=== PATIENT | female | born 1985 | race Caucasian/White ===

== ENCOUNTER 2019-08-30 09:01 | Emergency (ER) | payer OTHER ==
--- NOTE | 2019-08-30 10:42 | Emergency Department Report ---
ED Palpitations HPI - General Chief Complaint: Arrhythmia/Palpitations Stated Complaint: HEART RATE FAST Time Seen by Provider: 08/30/19 10:32 Source: patient Mode of arrival: Ambulatory Limitations: No Limitations - History of Present Illness Initial Comments: Patient is 33 years old female with no significant past medical history except for hypothyroidism for which she is taking Synthroid. Patient presented to the ER complaining of palpitation since last night. Patient stated that episode continued for a few minutes and they will go away. She stated that she will have some shortness of breath and she will feel dizzy with that. Patient also c omplaining of chest pain during this episode. Patient denying any loss of consciousness, focal weakness numbness or tingling sensation. MD Complaint: rapid heart beat, palpitations -: Last night Context: occured during exertion Associated Symptoms: shortness of breath - Related Data Allergies Allergy/AdvReac Type Severity Reaction Status Date / Time No Known Allergies Allergy Unverified 08/30/19 09:12 ED Review of Systems ROS: Stated complaint: HEART RATE FAST Other details as noted in HPI Comment: All other systems reviewed and negative Constitutional: denies: chills, fever Respiratory: shortness of breath. denies: cough, SOB with exertion, SOB at rest, wheezing Cardiovascular: chest pain, palpitations Gastrointestinal: denies: abdominal pain, nausea, vomiting Neurological: denies: headache, weakness, numbness, paresthesias, confusion ED Past Medical Hx - Past Medical History Previous Medical History?: Yes Additional medical history: Hashimotos ED Physical Exam - General Limitations: No Limitations General appearance: alert, in no apparent distress, anxious - Head Head exam: Present: atraumatic, normocephalic, normal inspection - Eye Eye exam: Present: normal appearance - ENT ENT exam: Present: normal exam, normal orophraynx, mucous membranes moist - Neck Neck exam: Present: normal inspection, full ROM. Absent: tenderness, meningismus, lymphadenopathy, thyromegaly - Respiratory Respiratory exam: Present: normal lung sounds bilaterally - Cardiovascular Cardiovascular Exam: Present: tachycardia - GI/Abdominal GI/Abdominal exam: Present: soft, normal bowel sounds. Absent: distended, tenderness, guarding, rebound, rigid, organomegaly, mass, bruit, pulsatile mass, hernia - Extremities Exam Extremities exam: Present: normal inspection, full ROM, normal capillary refill. Absent: tenderness, pedal edema, joint swelling, calf tenderness - Back Exam Back exam: Present: normal inspection, full ROM. Absent: CVA tenderness (R), CVA tenderness (L), muscle spasm, paraspinal tenderness, vertebral tenderness - Neurological Exam Neurological exam: Present: alert, oriented X3, CN II-XII intact, normal gait, reflexes normal. Absent: motor sensory deficit - Psychiatric Psychiatric exam: Present: normal mood, anxious - Skin Skin exam: Present: warm, intact, normal color ED Course Vital Signs 08/30/19 08/30/19 08/30/19 09:30 11:59 12:00 Temperature 98.8 F Pulse Rate 107 H 85 85 Respiratory 20 16 15 Rate Blood Pressure 118/78 Blood Pressure 146/85 [Right] O2 Sat by Pulse 100 100 100 Oximetry ED Medical Decision Making - Lab Data Result diagrams: 08/30/19 11:06 08/30/19 11:06 - EKG Data -: EKG Interpreted by In EKG shows normal: sinus rhythm Rate: tachycardia - EKG Data Interpretation: no acute changes - Radiology Data Radiology results: report reviewed - Medical Decision Making Patient is 33 years old female with no significant past medical history except for hypothyroidism for which she is taking Synthroid. Patient presented to the ER complaining of palpitation since last night. Patient stated that episode continued for a few minutes and they will go away. She stated that she will have some shortness of breath and she will feel dizzy with that. Patient also complaining of chest pain during this episode. Patient denying any loss of consciousness, focal weakness numbness or tingling sensation. Patient remained stable in the ER. EKG showed a sinus tachycardia with a heart rate of 100. Chest x-ray is unremarkable. Labs reviewed and is unremarkable including a negative troponin, d-dimer and thyroid panel. 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 Patient also advised to return to the ER if she develops any new symptoms or her symptoms get worse. Critical care attestation.: If time is entered above; I have spent that time in minutes in the direct care of this critically ill patient, excluding procedure time. ED Disposition Clinical Impression: Palpitations Disposition: - TO HOME OR SELFCARE Is pt being admited?: No Condition: Stable Instructions: Palpitations (ED) Referrals: [facility] [Provider Group] - 3-5 Days [facility] [Provider Group] - 3-5 Days
[2019-08-30 11:00] LABS: Amphetamine Screen,Urine PRESUMPTIVE NEGATIVE; Benzodiazepines Screen,Urine PRESUMPTIVE NEGATIVE; Cannabinoid Screen,Urine PRESUMPTIVE NEGATIVE; Cocaine Screen,Urine PRESUMPTIVE NEGATIVE; Methadone Screen,Urine PRESUMPTIVE NEGATIVE; Opiate Screen,Urine PRESUMPTIVE NEGATIVE
[2019-08-30 11:01] LABS: Bacteria,Urine 1+ /HPF (Negative); Bilirubin,Urine NEG (Negative); Blood,Urine NEG (Negative); Color,Urine Straw (Yellow); Mucus,Urine FEW /HPF; Protein,Urine <15 mg/dL mg/dL (Negative); Urobilinogen,Urine < 2.0 mg/dL (<2.0)
[2019-08-30 11:03] LABS: WBC,Urine < 1.0 /HPF (0.0-6.0)
[2019-08-30 11:18] LABS: Basophils % (Auto) 0.7 % (0.0-1.8); Eosinophils # (Auto) 0.2 K/mm3 (0.0-0.4); Eosinophils % (Auto) 2.9 % (0.0-4.3); Hemoglobin 13.8 gm/dl (10.1-14.3); Lymphocytes # (Auto) 0.8 K/mm3 (1.2-5.4); Lymphocytes % (Auto) 15.7 % (13.4-35.0); Mean Corpuscular HGB Conc 34 % (30-34); Mean Corpuscular Volume 93 fl (79-97); Monocytes # (Auto) 0.3 K/mm3 (0.0-0.8); Monocytes % (Auto) 5.3 % (0.0-7.3); Platelet Count 267 K/mm3 (140-440); Red Blood Count 4.29 M/mm3 (3.65-5.03); Red Cell Distribution Width 12.8 % (13.2-15.2)
[2019-08-30 11:29] LABS: INR 0.98 (0.87-1.13)
[2019-08-30 11:30] LABS: Partial Thromboplastin Time 29.8 Sec. (24.2-36.6)
[2019-08-30 11:42] LABS: BUN/Creatinine Ratio 18; Blood Urea Nitrogen 9 mg/dL (7-17); Calcium 9.9 mg/dL (8.4-10.2); Hemolysis Index 13
--- NOTE | 2019-08-30 11:44 | XRay Report ---
CHEST 1 VIEW INDICATION: Dysrhythmia. COMPARISON: None FINDINGS: Support devices: None. Heart: Within normal limits. Lungs/Pleura: No acute air space or interstitial disease. Additional findings: None. IMPRESSION: Normal AP chest. Signer Name: Chevy Stevens Jr, MD Signed: 08/30/2019 11:40 AM Workstation Name: [id number]
[2019-08-30 11:51] LABS: Free T4 (Free Thyroxine) 1.28 ng/dL (0.76-1.46)
[2019-08-30 12:02] VITALS: BP 118/78
== END 2019-08-30 12:38 | disposition home or self-care (01) ==
LOC: ED 09:01
DX: R00.2 Palpitations (principal)
CPT/HCPCS: 36415; 71045; 80048; 80307; 81001; 82962; 83735; 84439; 84443; 84484; 85025; 85379; 85610; 85730; 93005; 93010

== ENCOUNTER 2020-05-19 19:15 | Emergency (ER) | payer OTHER, MEDICAID ==
[2020-05-19 19:31] VITALS: BP 145/88
[2020-05-19 20:22] LABS: Basophils # (Auto) 0.1 K/mm3 (0.0-0.1); Basophils % (Auto) 0.8 % (0.0-1.8); Eosinophils # (Auto) 0.3 K/mm3 (0.0-0.4); Eosinophils % (Auto) 4.2 % (0.0-4.3); Hematocrit 37.9 % (30.3-42.9); Lymphocytes # (Auto) 1.4 K/mm3 (1.2-5.4); Lymphocytes % (Auto) 16.7 % (13.4-35.0); Mean Corpuscular HGB Conc 34 % (30-34); Mean Corpuscular Volume 95 fl (79-97); Monocytes # (Auto) 0.4 K/mm3 (0.0-0.8); Monocytes % (Auto) 5.5 % (0.0-7.3); Platelet Count 286 K/mm3 (140-440); Red Blood Count 3.97 M/mm3 (3.65-5.03)
[2020-05-19 20:47] LABS: Alanine Aminotransferase 11 units/L (7-56); Albumin 4.4 g/dL (3.9-5); BUN/Creatinine Ratio 20; Blood Urea Nitrogen 12 mg/dL (7-17); Calcium 9.9 mg/dL (8.4-10.2); Hemolysis Index 3
[2020-05-19 20:49] LABS: Bilirubin,Urine NEG (Negative); Blood,Urine LG (Negative); Color,Urine Yellow (Yellow); Mucus,Urine FEW /HPF; Protein,Urine <15 mg/dL mg/dL (Negative); Urobilinogen,Urine < 2.0 mg/dL (<2.0)
[2020-05-19] MEDS ORDERED: ALUM-MAG HYDROXIDE-SIMETHICONE 200-200-20MG/5ML ORAL LIQD 30 ML PO ONE (21:07)
[2020-05-19] MEDS ORDERED: LIDOCAINE VISCOUS 2% 15 ML ORAL LIQD PO ONE (21:07)
[2020-05-19] MEDS ORDERED: ONDANSETRON 4 MG ODT TAB PO ONE (21:07)
[2020-05-19] MEDS ORDERED: FAMOTIDINE 20 MG TAB PO ONE (21:07)
--- NOTE | 2020-05-19 23:44 | Ultrasound Report ---
US abdomen limited INDICATION / CLINICAL INFORMATION: RUQ and Epigastric pain. COMPARISON: None available. FINDINGS: Gallbladder appears normal, with no stones. Common duct is normal in size. Liver, pancreas and abdominal aorta also appear negative. IMPRESSION: 1. Negative study. Signer Name: Jean-Paul Partida MD Signed: 05/19/2020 11:40 PM Workstation Name: [id number]
--- NOTE | 2020-05-19 23:53 | Emergency Department Report ---
ED Abdominal Pain HPI - General Chief Complaint: Abdominal Pain Stated Complaint: ABDOMINAL PAIN,NAUSEA FOR 2WEEKS Source: patient Mode of arrival: Ambulatory Limitations: No Limitations - History of Present Illness Initial Comments: Patient is a 34-year-old female with a history of hypothyroidism who presents to the ED with acute onset persistent epigastric pain with nausea and vomiting intermittently for the last 2.5 weeks. Patient states that the pain gets worse she eats and food. Patient states that she does not eat much because of persistent nausea and vomiting with worsening epigastric pain. Patient states that the pain has worsened especially in the last 2 days. Patient denies dizziness, syncope, chest pain, shortness of breath, fever, chills, diarrhea, dysuria, urinary frequency and urgency, hematemesis, hemoptysis, cough, sore throat, headache, change in vision or back pain. MD Complaint: abdominal pain (epigastric pain, nausea) -: Gradual, week(s) (2) Location: epigastric Radiation: none Migration to: no migration Severity: moderate Severity scale (0 -10): 5 Quality: cramping, aching Consistency: intermittent Improves With: nothing Worsens With: eating Associated Symptoms: denies other symptoms, nausea, vomiting. denies: diarrhea, fever, chills, constipation, dysuria, hematemesis, hematochezia, melena, hematuria, other - Related Data Previous Rx's Medication Instructions Recorded Last Taken Type Dicyclomine [Bentyl] 20 mg PO Q6H PRN #24 tablet 05/19/20 Unknown Rx Famotidine [Pepcid] 20 mg PO BID #60 tablet 05/19/20 Unknown Rx Omeprazole 40 mg PO DAILY #60 capsule.dr 05/19/20 Unknown Rx Ondansetron [Zofran Odt] 4 mg PO Q6HR PRN #20 tab.rapdis 05/19/20 Unknown Rx Allergies Allergy/AdvReac Type Severity Reaction Status Date / Time No Known Allergies Allergy Unverified 08/30/19 09:12 ED Review of Systems ROS: Stated complaint: ABDOMINAL PAIN,NAUSEA FOR 2WEEKS Other details as noted in HPI Constitutional: denies: chills, fever Eyes: denies: eye pain, eye discharge, vision change ENT: denies: ear pain, throat pain Respiratory: denies: cough, shortness of breath, wheezing Cardiovascular: denies: chest pain, palpitations Endocrine: no symptoms reported Gastrointestinal: abdominal pain (epigastric pain), nausea, vomiting. denies: diarrhea Genitourinary: denies: urgency, dysuria, discharge Musculoskeletal: denies: back pain, joint swelling, arthralgia Skin: denies: rash, lesions Neurological: denies: headache, weakness, paresthesias Psychiatric: denies: anxiety, depression Hematological/Lymphatic: denies: easy bleeding, easy bruising ED Past Medical Hx - Past Medical History Previous Medical History?: Yes Additional medical history: Hashimotos - Surgical History Past Surgical History?: No - Social History Smoking Status: Never Smoker Substance Use Type: None - Medications Home Medications: Home Medications Medication Instructions Recorded Confirmed Last Taken Type Dicyclomine [Bentyl] 20 mg PO Q6H PRN #24 tablet 05/19/20 Unknown Rx Famotidine [Pepcid] 20 mg PO BID #60 tablet 05/19/20 Unknown Rx Omeprazole 40 mg PO DAILY #60 capsule.dr 05/19/20 Unknown Rx Ondansetron [Zofran Odt] 4 mg PO Q6HR PRN #20 tab.rapdis 05/19/20 Unknown Rx ED Physical Exam - General Limitations: No Limitations General appearance: alert, in no apparent distress - Head Head exam: Present: atraumatic, normocephalic, normal inspection - Eye Eye exam: Present: normal appearance, PERRL, EOMI Pupils: Present: normal accommodation - ENT ENT exam: Present: normal exam, normal orophraynx, mucous membranes moist, TM's normal bilaterally, normal external ear exam - Neck Neck exam: Present: normal inspection, full ROM - Respiratory Respiratory exam: Present: normal lung sounds bilaterally. Absent: respiratory distress, wheezes, rales, rhonchi, chest wall tenderness, accessory muscle use, decreased breath sounds, other - Cardiovascular Cardiovascular Exam: Present: regular rate, normal rhythm, normal heart sounds. Absent: systolic murmur, diastolic murmur, rubs, gallop - GI/Abdominal GI/Abdominal exam: Present: soft, tenderness (Palpable mild epigastric tenderness), normal bowel sounds. Absent: guarding, rebound, organomegaly - Extremities Exam Extremities exam: Present: normal inspection, full ROM, normal capillary refill - Back Exam Back exam: Present: normal inspection, full ROM. Absent: tenderness, CVA tenderness (R), CVA tenderness (L), muscle spasm, paraspinal tenderness - Neurological Exam Neurological exam: Present: alert, oriented X3, CN II-XII intact, normal gait, reflexes normal - Psychiatric Psychiatric exam: Present: normal affect, normal mood - Skin Skin exam: Present: warm, dry, intact, normal color. Absent: rash ED Course Vital Signs 05/19/20 19:28 Temperature 99.0 F Pulse Rate 89 Respiratory 18 Rate Blood Pressure 145/88 O2 Sat by Pulse 100 Oximetry ED Medical Decision Making - Lab Data Result diagrams: 05/19/20 20:00 05/19/20 20:00 - Radiology Data Radiology results: report reviewed, image reviewed Findings [facility] [address] [id number] Ultrasound Report Signed Patient: MALIA BASS MR#: [id number] : 1985 Acct:[id number] Age/Sex: 34 / F ADM Date: 05/19/20 Loc: ED Attending Dr: Ordering Physician: SPEEDY CRESPO Date of Service: 05/19/20 Procedure(s): US abdomen limited Accession Number(s): [id number] cc: SPEEDY CRESPO US abdomen limited INDICATION / CLINICAL INFORMATION: RUQ and Epigastric pain. COMPARISON: None available. FINDINGS: Gallbladder appears normal, with no stones. Common duct is normal in size. Liver, pancreas and abdominal aorta also appear negative. IMPRESSION: 1. Negative study. Signer Name: Jean-Paul Partida MD Signed: 05/19/2020 11:40 PM Workstation Name: [id number] Transcribed By: TM Dictated By: Jean-Paul Partida MD Electronically Authenticated By: Jean-Paul Partida MD Signed Date/Time: 05/19/20 048 DD/ 1552 TD/TT: - Medical Decision Making This is a 34-year-old female with a history of hypothyroidism who presents to the ED with acute onset persistent epigastric pain with nausea and vomiting intermittently for the last 2.5 weeks. Patient states that the pain gets worse she eats and food. Patient states that she does not eat much because of persistent nausea and vomiting with worsening epigastric pain. Patient states that the pain has worsened especially in the last 2 days. In the ED, patient is alert and oriented x3 and is not in distress. Patient was treated with antacids and antiemetics in the ED. Lab test results were reviewed and are all nonactionable. Gallbladder ultrasound was unremarkable with no acute abnormalities. On reevaluation, patient felt better, nausea resolved and the epigastric pain also improved significantly. Patient was discharged home on medications including antacids and antiemetics and was advised to follow-up with her primary care physician in 5 to 7 days for reevaluation or return to the ED immediately if symptoms get worse. - Differential Diagnosis GERD; Cholelithiasis; Cholecystitis; Pancreatitis; UTI; Gastritis Critical care attestation.: If time is entered above; I have spent that time in minutes in the direct care of this critically ill patient, excluding procedure time. ED Disposition Clinical Impression: Acute epigastric pain, Nausea and vomiting in adult GERD (gastroesophageal reflux disease) Qualifiers: Esophagitis presence: without esophagitis Qualified Code(s): K21.9 - Gastro- esophageal reflux disease without esophagitis Disposition: DC- TO HOME OR SELFCARE Is pt being admited?: No Does the pt Need Aspirin: No Condition: Stable Instructions: Gastroesophageal Reflux Disease (ED), Acute Nausea and Vomiting (ED), Abdominal Pain (ED) Additional Instructions: All lab test results are unremarkable. Imaging report also shows no acute abnormalities in the right upper quadrant or gallbladder. Your symptoms are likely due to GERD or acid reflux. Therefore take medication with food, drink plenty of fluids and follow-up with your primary care physician in 7 to 10 days for reevaluation. Return to the ED immediately if symptoms get worse. Prescriptions: Dicyclomine [Bentyl] 20 mg PO Q6H PRN #24 tablet PRN Reason: Abdominal pain Omeprazole 40 mg PO DAILY #60 capsule. Famotidine [Pepcid] 20 mg PO BID #60 tablet Ondansetron [Zofran Odt] 4 mg PO Q6HR PRN #20 tab.rapdis PRN Reason: Nausea Referrals: [facility] [Provider Group] - 3-5 Days Forms: Work/School Release Form(ED) Time of Disposition: 23:53 Print Language: HEBREW
== END 2020-05-20 00:05 | disposition home or self-care (01) ==
LOC: ED 19:15
DX: K21.9 Gastro-esophageal reflux disease without esophagitis (principal); Z79.899 Other long term (current) drug therapy
CPT/HCPCS: 36415; 76705; 80053; 81001; 83690; 84703; 85025; Q0162